=== PATIENT | female | born 1995 | race Caucasian/White ===

== ENCOUNTER 2017-01-19 17:38 | Emergency (ER) | payer BC ==
[~2017-01-19] VITALS: Ht 152.4 cm; Wt 52.2 kg
[2017-01-19 18:25] LABS: HEMATOCRIT 42.7 % (36.0-46.0); MCH 30.7 PG (29.0-34.0); MCHC 33.5 G/DL (30.0-36.0); MCV 91.6 FL (83-99); MEAN PLAT.VOLUME 10.1 uM^3 (9.5-12.4); PLATELET COUNT 318 K/uL (156-360); RBC DIS.WIDTH-CV 12.1 % (11.8-14.6); RBC DIS.WIDTH-SD 39.6 % (39-53); RED BLOOD COUNT 4.66 M/uL (3.80-5.20); WHITE BLOOD COUNT 10.7 K/uL (4.1-10.2)
[2017-01-19 18:36] LABS: CHLORIDE 104 mEq/L (99-109); POTASSIUM 3.9 mEq/L (3.7-5.4); SODIUM 139 mEq/L (136-147)
[2017-01-19 18:39] LABS: GLUCOSE 91 mg/dL (70-99)
[2017-01-19 18:40] LABS: ANION GAP 8 MEQ/L (2-14)
[2017-01-19 18:41] LABS: TOTAL BILIRUBIN 0.7 mg/dL (0.0-1.0)
[2017-01-19 18:42] LABS: ALKALINE PHOSPHATASE 42 IU/L (3-129); GFR ESTIMATE (CALCULATED) > 59 mL/min/
[2017-01-19 18:43] LABS: UREA NITROGEN (BUN) 11 mg/dL (9-23)
[2017-01-19 18:51] LABS: QUANTITATIVE HCG < 4.0 MIU/ML
[2017-01-19 19:32] LABS: ADD MIUA? YES; BILIRUBIN NEGATIVE; BLOOD SMALL; COLOR YELLOW ((YELLOW)); GLUCOSE (STRIP) NEGATIVE; KETONES NEGATIVE; LEUKOCYTES NEGATIVE; NITRITE NEGATIVE; PROTEIN (STRIP) NEGATIVE; SPECIFIC GRAVITY 1.024 (1.000-1.030); UROBILINOGEN 0.2 MG/DL (0.2-1.0)
[2017-01-19 19:51] LABS: BACTERIA NONE SEEN /HPF; CASTS NONE SEEN /LPF; CRYSTALS NONE SEEN; EPITHELIAL CELLS RARE /HPF; MUCUS NONE SEEN /LPF; RED BLOOD CELLS 0-5 /HPF (0-5); UCUL ADDED? NO; WHITE BLOOD CELLS 0-5 /HPF (0-5)
[2017-01-20] MEDS ORDERED: TRAMADOL HCL50 MG PO (01:13)
[2017-01-20] MEDS ORDERED: NAPROSYN500 MG PO (01:13)
[2017-01-20 01:24] VITALS: BP 90/58
[2017-01-21 12:15] LABS: CHLAMYDIA TRACHOMATIS NEGATIVE; NEISSERIA GONORRHOEAE NEGATIVE
== END 2017-01-20 01:28 | disposition home or self-care (01) ==
LOC: EME 17:38
PROVIDERS: Physician Assistant
DX: R10.31 Right lower quadrant pain (principal); R11.2 Nausea with vomiting, unspecified; R42 Dizziness and giddiness; F17.200 Nicotine dependence, unspecified, uncomplicated
CPT/HCPCS: 74177; 76856; 80053; 81003; 84702; 85027; 87210; 87491; 87591; 99281; 99285; J2270; J2405; J3010; J7030